=== PATIENT | female | born 1935 | race Caucasian/White ===

== ENCOUNTER 2018-07-01 14:17 | Inpatient (IN) ==
[2018-07-01] MEDS ORDERED: Ondansetron ODT 4 MG TAB.RAPDIS PO PRN (16:08)
[2018-07-01] MEDS ORDERED: Furosemide 20 MG TABLET PO PRN (16:08)
[2018-07-01] MEDS ORDERED: Levalbuterol Neb 0.63 MG/3 ML IH PRN (16:08)
[2018-07-01] MEDS ORDERED: *HR* Warfarin 1 MG TABLET PO SCH (18:00)
[2018-07-01] MEDS: Azithromycin 250 MG TABLET PO SCH (18:23)
[2018-07-01] MEDS: Melatonin 3 MG TABLET PO SCH (20:55)
[2018-07-01] MEDS: Pregabalin 50 MG CAPSULE PO SCH (20:55)
[2018-07-01] MEDS: traZODone 50 MG TABLET PO SCH (20:55)
[2018-07-01] MEDS ORDERED: Nitrofurantoin (BID) 100 MG CAPSULE PO SCH (21:00)
[2018-07-01] MEDS: Lactobacillus 1 EACH CAP.SPRINK PO SCH (21:11)
[2018-07-01] MEDS: Ipratropium/Albuterol Neb 3 ML IH SCH (22:52)
[2018-07-02] MEDS: Ipratropium/Albuterol Neb 3 ML IH SCH ×4 (05:10→22:53)
[2018-07-02] MEDS ORDERED: Cefdinir 300 MG CAPSULE PO SCH (09:00)
[2018-07-02 09:15] LABS: Basophils # 0.1 K/mcL (0.0-0.2); Basophils % 0.6 %; Eosinophils # 0.3 K/mcL (0.0-0.6); Eosinophils % 2.5 %; Hematocrit 39.9 % (35.3-44.9); Hemoglobin 12.9 g/dL (11.5-15.4); Lymphocytes # 2.2 K/mcL (0.6-4.6); Lymphocytes % 21.5 %; Mean Corpuscular HGB Conc 32.3 g/dL (31.6-35.5); Mean Corpuscular Hemoglobin 31.5 pg (28.0-33.3); Mean Corpuscular Volume 97.6 fL (83.0-100.0); Mean Platelet Volume 10.2 fL (9.4-12.4); Monocytes # 0.9 K/mcL (0.0-1.3); Monocytes % 8.8 %; Neutrophils # 6.7 K/mcL (1.6-8.9); Platelet Count 270 K/mcL (140-400); Red Blood Count 4.09 M/mcL (3.82-4.97); Red Cell Distribution Width 12.5 % (11.5-14.5); Segmented Neutrophils % 64.6 %
[2018-07-02 09:54] LABS: INR 1.5; Prothrombin Time 17.2 Seconds (9.4-12.1)
[2018-07-02 09:56] LABS: Activated Partial Thrombo Time 36.9 Seconds (26.0-36.0)
[2018-07-02] MEDS: Lactobacillus 1 EACH CAP.SPRINK PO SCH ×2 (10:02→20:49)
[2018-07-02] MEDS: Loratadine 10 MG TABLET PO SCH (10:02)
[2018-07-02] MEDS: Pregabalin 50 MG CAPSULE PO SCH ×2 (10:03→20:49)
[2018-07-02] MEDS: Cholecalciferol (D-3) 1,000 UNIT TABLET PO SCH (10:03)
[2018-07-02] MEDS: *HR* Digoxin 0.125 MG TABLET PO SCH (10:05)
[2018-07-02 10:12] LABS: Calcium 9.1 mg/dL (8.6-10.3); Potassium 4.3 mEq/L (3.5-5.1)
[2018-07-02] MEDS: UMECLIDINIUM IH SCH (10:48)
[2018-07-02] MEDS: BREO ELLIPTA IH SCH (10:48)
[2018-07-02] MEDS: Azithromycin 250 MG TABLET PO SCH (15:27)
[2018-07-02] MEDS ORDERED: Furosemide 20 MG TABLET PO SCH (15:45)
[2018-07-02] MEDS ORDERED: *HR* Warfarin 2 MG TABLET PO SCH (18:00)
--- NOTE | 2018-07-02 19:53 | Internal Med History&Physical ---
Date of Encounter: 07/02/18 Time of Encounter: 19:20 Assessment and Plan (1) HCAP (healthcare-associated pneumonia) Current visit: No Status: Acute She will be started on doxycycline with lactobacillus for mycoplasma pneumonia. (2) Hypothyroidism Current visit: Yes Status: Chronic TSH will be checked in a.m. Qualifiers: Hypothyroidism type: unspecified Qualified Code(s): E03.9 - Hypothyroidism, unspecified (3) CKD (chronic kidney disease) stage 3, GFR 30-59 ml/min Current visit: Yes Status: Chronic Monitor renal indices. (4) Type 2 diabetes mellitus Current visit: No Status: Chronic Check hemoglobin A1c in a.m. Qualifiers: Diabetes mellitus long-term insulin use: without keno terminal operator use Diabetes mellitus complication status: without complication Qualified Code(s): E11.9 - Type 2 diabetes mellitus without complications (5) Atrial fibrillation Current visit: No Status: Chronic Continue Coumadin and monitor pro times. Qualifiers: Atrial fibrillation type: chronic Qualified Code(s): I48.2 - Chronic atrial fibrillation (6) COPD with exacerbation Current visit: No Status: Acute Antibiotics as per above. Continue nebulizer treatments as needed. Internal Medicine - H&P: HPI Chief complaint: Pneumonia Admitted From: Hospital to Hospital Transfer Plans for Post Hospital Care: Home History of present illness: Ms. Canada is a 82 year old female was hospitalized at [facility] June 28 with pneumonia. She reportedly had failed outpatient therapy. She was found to have rhinovirus and mycoplasma pneumonia on serology. She was stabilized and transferred to [facility] swing bed for ongoing care needs. Respiratory history is significant for having smoked from age [age]. She claims a diagnosis of COPD from pulmonary function test many years ago. She has oxygen at home which she uses at bedtime and when necessary during the daytime. Past Med Surg Social Fam HX - Past Medical History Medical history: arthritis, atrial fibrillation, CHF, COPD, dementia, diabetes, renal disease Additional medical history: mitral valve prolapse Psychiatric history: depression - Past Surgical History Surgical History: breast surgery, cholecystectomy, hysterectomy, knee replacement Additional surgical history: bladder repair - Social History Smoking Status: Former smoker Smokeless Tobacco Status: No Alcohol use: none Drug use: none - Family History Son Hx Family Cardiac Disorders: Yes Hx Family Endocrine Disorder: Yes Mother Adopted: No Age: 61 Family Member Ethnicity: Non- Living Status: Age at : 61 Cause of : [place] , CHF, Hx Family Cardiac Disorders: Yes Hx Family Respiratory Disorders: No Hx Family Cancer: No Hx Family GI Disorders: No Hx Family Genitourinary Disorders: No Hx Family Endocrine Disorder: No Hx Family Musculoskeletal Disorders: No Hx Family Neuromuscular Disorders: No Hx Family Neurologic Disorders: No Hx Family HEENT Disorders: No Hx Family Autoimmune Disorders: No Hx Family Reproductive Disorders: No Hx Family Psychosocial Disorders: No Hx Family Medical Disorders: No Father Adopted: No Age: 62 Family Member Ethnicity: Non- Living Status: Age at : 62 Cause of : kidney disease Hx Family Cardiac Disorders: No Hx Family Respiratory Disorders: No Hx Family Cancer: No Hx Family GI Disorders: No Hx Family Genitourinary Disorders: No Hx Family Endocrine Disorder: Yes (kidney disease) Hx Family Musculoskeletal Disorders: No Hx Family Neuromuscular Disorders: No Hx Family Neurologic Disorders: No Hx Family HEENT Disorders: No Hx Family Autoimmune Disorders: No Hx Family Reproductive Disorders: No Hx Family Psychosocial Disorders: No Hx Family Medical Disorders: No Internal Medicine - H&P: Meds Acetaminophen [Tylenol] 500 mg PO Q6HR PRN 06/28/18 [History] Atenolol [Tenormin] 50 mg PO DAILY 06/28/18 [History] Cholecalciferol (Vitamin D3) [Vitamin D3] 2,000 unit PO DAILY 06/28/18 [History] Digoxin [Lanoxin] 0.125 mg PO DAILY 06/28/18 [History] Docusate [Colace] 100 mg PO DAILY PRN 06/28/18 [History] Duloxetine HCl [Cymbalta] 60 mg PO DAILY 06/28/18 [History] Fluticasone/Vilanterol [Breo Ellipta 200-25 Mcg INH] 1 puff IH DAILY 06/28/18 [History] Furosemide [Lasix] 20 mg PO DAILY PRN 06/28/18 [History] HydrOXYzine 10 mg PO TID PRN 06/28/18 [History] Levalbuterol Neb [Xopenex Neb] 0.63 mg IH QID PRN 06/28/18 [History] Levothyroxine [Synthroid] 100 mcg PO 0630 06/28/18 [History] Loratadine [Allergy Relief] 10 mg PO DAILY 06/28/18 [History] Meclizine HCl [Verticalm] 25 mg PO TID PRN 06/28/18 [History] Melatonin 10 mg PO HS 06/28/18 [History] Montelukast [Singulair] 10 mg PO DAILY 06/28/18 [History] Nitrofurantoin Macrocrystal [Nitrofurantoin] 100 mg PO BID 06/28/18 [History] Ondansetron HCl [Zofran] 4 mg PO TID PRN 06/28/18 [History] Pregabalin [Lyrica] 100 mg PO BID 06/28/18 [History] Rosuvastatin Calcium [Crestor] 5 mg PO DAILY 06/28/18 [History] Umeclidinium [place] [Incruse Ellipta] 62.5 mcg IH DAILY 06/28/18 [History] Warfarin Sodium 1 mg PO SUTUTHSA 06/28/18 [History] Warfarin [Coumadin] 2 mg PO MOWEFR 06/28/18 [History] traZODone [TraZODone] 50 mg PO HS 06/28/18 [History] Azithromycin [Zithromax] 500 mg PO Q24H tablet 07/01/18 [Rx] Cefdinir [Omnicef] 300 mg PO DAILY capsule 07/01/18 [Rx] Allergy/AdvReac Type Severity Reaction Status Date / Time adhesive tape Allergy Rash Verified 06/27/18 23:58 codeine Allergy Rash Verified 06/27/18 23:58 dexbrompheniramine Allergy Rash Verified 06/27/18 23:58 [From Adexol] Penicillins Allergy Rash Verified 06/27/18 23:58 pseudoephedrine [From Adexol] Allergy Rash Verified 06/27/18 23:58 Sulfa (Sulfonamide Allergy Rash Verified 06/27/18 23:58 Antibiotics) All Systems PM: A 10-system review of systems was performed and is negative for pertinent findings except as documented above in the HPI. Review of systems: Gen.: She states her weight has been stable for several months Cardiovascular: She has history of chronic atrial fibrillation and claims diagnosis of heart failure. Echocardiogram done at [place] was reported unremarkable on [facility] notes. She has occasional chest pain on exertion. She denies hypertension [place] DVT or pulmonary embolus Respiratory: As per history of present illness GI: She has had cholecystectomy. She reports a diagnosis of cirrhosis of uncertain etiology. She denies disorders of her liver otherwise or exocrine pancreas. : She has chronic kidney disease stage III and follows with a refinery operator reforming unit. She denies other kidney or bladder disorders. Neurologic: She denies large distribution strokes or seizures. Endocrine: She was diagnosed with DM 2 several years ago. She has hypothyroidism and hyperlipidemia Hematology/oncology: She had left breast cancer with partial mastectomy 1968 which was curative. She denies recurrence or other malignancies. She denies anemia. Psychiatric: She has depression but denies anxiety other mental health issues [place] skeletal: She has DJD. She had right total knee replacement approximately 2006. She denies gout or other bone joint or muscle disorders. - Constitutional Vitals: Temp Pulse Resp BP Pulse Ox 97.4 F L 82 18 107/68 98 07/02/18 18:38 07/02/18 18:38 07/02/18 18:38 07/02/18 18:38 07/02/18 18:38 Exam: Gen.: She is a well-developed well-nourished female lying in bed who appears in no acute distress at present time HEENT: Head is atraumatic and normocephalic. Eyes: EOMI. There is no scleral icterus. Mouth: Mucosa is moist. Neck: Supple and nontender. There is no thyromegaly or adenopathy noted. Heart: Irregularly irregular without murmurs or gallops Lungs: She has inspiratory crackles in the right base that do not clear with coughing. No wheezing is heard. Abdomen: Soft and nontender. No masses or guarding are noted. Extremities: There is no cyanosis edema or clubbing noted. Dorsalis pedis and posterior tibial pulses are trace palpable bilaterally. Her feet are warm to touch. Neurologic: Mental status: She is talkative and a good historian. Cranial nerves: Smile is symmetric. Forehead wrinkles bilaterally. Tongue protrudes midline. EOMI. Motor: There is no pronator drift. Cerebellar: Finger to nose is intact bilaterally. Skin: Warm and dry Internal Med - H&P Results - Labs CBC & Chem 7: 07/02/18 09:04 07/02/18 09:04 Labs: Short CBC 07/02/18 Range/Units 09:04 WBC 10.4 (4.3-11.1) K/mcL Hgb 12.9 (11.5-15.4) g/dL Hct 39.9 (35.3-44.9) % Plt Count 270 (140-400) K/mcL Neutrophils # 6.7 (1.6-8.9) K/mcL BMP 07/02/18 09:04 Sodium 138 Potassium 4.3 Chloride 96 L Carbon Dioxide 37 H BUN 24 H Creatinine 1.08 Glucose 139 H Calcium 9.1
[2018-07-02] MEDS: traZODone 50 MG TABLET PO SCH (20:49)
[2018-07-02] MEDS: Doxycycline 100 MG CAPSULE PO SCH (20:49)
[2018-07-02] MEDS: Melatonin 3 MG TABLET PO SCH (20:49)
[2018-07-03] MEDS: Ipratropium/Albuterol Neb 3 ML IH SCH ×3 (04:56→16:00)
[2018-07-03 05:53] LABS: Basophils % 0.2 %; Eosinophils # 0.2 K/mcL (0.0-0.6); Eosinophils % 2.2 %; Hematocrit 33.9 % (35.3-44.9); Hemoglobin 11.1 g/dL (11.5-15.4); Immature Granulocytes % 1.7 % (0-4); Lymphocytes # 1.9 K/mcL (0.6-4.6); Lymphocytes % 18.2 %; Mean Corpuscular HGB Conc 32.7 g/dL (31.6-35.5); Mean Corpuscular Hemoglobin 32.1 pg (28.0-33.3); Mean Platelet Volume 10.3 fL (9.4-12.4); Monocytes # 0.9 K/mcL (0.0-1.3); Monocytes % 8.6 %; Platelet Count 193 K/mcL (140-400); Red Blood Count 3.46 M/mcL (3.82-4.97); Red Cell Distribution Width 12.8 % (11.5-14.5); Segmented Neutrophils % 69.1 %
[2018-07-03 06:24] LABS: Thyroid Stimulating Hormone 3.442 mcIU/mL (0.340-5.600)
[2018-07-03 07:09] LABS: Calcium 8.3 mg/dL (8.6-10.3); Digoxin 0.6 ng/mL (0.8-2.0); Magnesium 1.8 mg/dL (1.6-2.6); Potassium 4.2 mEq/L (3.5-5.1)
[2018-07-03] MEDS: *HR* Digoxin 0.125 MG TABLET PO SCH (09:19)
[2018-07-03 09:20] LABS: Folate 9.9 ng/mL (3.0-16.0)
[2018-07-03] MEDS: Doxycycline 100 MG CAPSULE PO SCH ×2 (09:20→21:03)
[2018-07-03] MEDS: Lactobacillus 1 EACH CAP.SPRINK PO SCH ×2 (09:20→21:03)
[2018-07-03] MEDS: Loratadine 10 MG TABLET PO SCH (09:20)
[2018-07-03] MEDS: Cholecalciferol (D-3) 1,000 UNIT TABLET PO SCH (09:20)
[2018-07-03] MEDS: Pregabalin 50 MG CAPSULE PO SCH ×2 (09:20→21:04)
[2018-07-03] MEDS: BREO ELLIPTA IH SCH (09:24)
[2018-07-03] MEDS: UMECLIDINIUM IH SCH (09:24)
[2018-07-03 10:23] LABS: Estimated Average Glucose 163 mg/dl; Hemoglobin A1C 7.3 %
[2018-07-03] MEDS: *HR* Warfarin 2 MG TABLET PO SCH (17:45)
--- NOTE | 2018-07-03 19:09 | Internal Med Progress Note ---
Date of Encounter: 07/03/18 Time of Encounter: 19:00 - Assessment and plan (1) HCAP (healthcare-associated pneumonia) Current Visit: No Status: Acute Assessment and plan: July 03. Continue doxycycline and lactobacillus through July 07. (2) Hypothyroidism Current Visit: Yes Status: Chronic Assessment and plan: July 03. TSH was normal. Continue present dose Synthroid. Qualifiers: Hypothyroidism type: unspecified Qualified Code(s): E03.9 - Hypothyroidism, unspecified (3) CKD (chronic kidney disease) stage 3, GFR 30-59 ml/min Current Visit: Yes Status: Chronic Assessment and plan: July 03. Discontinue Lasix and monitor BMP peptide and azotemia. (4) Type 2 diabetes mellitus Current Visit: No Status: Chronic Assessment and plan: July 03. Hemoglobin A1c 7.3%. Continue Accu-Cheks with SSI Qualifiers: Diabetes mellitus termite treater helper insulin use: without senior living use Diabetes mellitus complication status: without complication Qualified Code(s): E11.9 - Type 2 diabetes mellitus without complications (5) Atrial fibrillation Current Visit: No Status: Chronic Assessment and plan: July 03. INR subtherapeutic at 1.5. Increase Coumadin to 2 mg daily. Qualifiers: Atrial fibrillation type: chronic Qualified Code(s): I48.2 - Chronic atrial fibrillation (6) COPD with exacerbation Current Visit: No Status: Acute Assessment and plan: July 03. Continue present regimen. Anticipate discharge home 07/07/2018. - Subjective Interval history: July 03. She has no new complaints and feels better. - Constitutional Vitals: Temp Pulse Resp BP Pulse Ox 98.5 F 94 18 128/68 100 07/03/18 18:49 07/03/18 18:49 07/03/18 18:49 07/03/18 18:49 07/03/18 18:49 Exam: She is resting comfortably in bed and appears in no acute distress. Her affect is bright and cheerful. I reviewed her medications and lab results. Internal Medicine: Result - Labs CBC & Chem 7: 07/03/18 05:33 07/03/18 05:33 Labs: Short CBC 07/03/18 Range/Units 05:33 WBC 10.2 (4.3-11.1) K/mcL Hgb 11.1 L D (11.5-15.4) g/dL Hct 33.9 L (35.3-44.9) % Plt Count 193 (140-400) K/mcL Neutrophils # 7.0 (1.6-8.9) K/mcL BMP 07/03/18 05:33 Sodium 140 Potassium 4.2 Chloride 99 Carbon Dioxide 35 H BUN 28 H Creatinine 1.12 Glucose 137 H Calcium 8.3 L - ABG Interpretation ABG results: PT/INR, D-dimer PT 17.2 Seconds (9.4-12.1) H 07/02/18 09:04 Consult Discharge Plan - Plan Referrals: Sulema Toney, PURCHASING EXPEDITOR [Primary Care Provider] - 1 week
[2018-07-03] MEDS: Melatonin 3 MG TABLET PO SCH (21:04)
[2018-07-03] MEDS: traZODone 50 MG TABLET PO SCH (21:04)
[2018-07-04] MEDS: Lactobacillus 1 EACH CAP.SPRINK PO SCH ×2 (08:28→21:43)
[2018-07-04] MEDS: Doxycycline 100 MG CAPSULE PO SCH ×2 (08:29→21:43)
[2018-07-04] MEDS: Cholecalciferol (D-3) 1,000 UNIT TABLET PO SCH (08:29)
[2018-07-04] MEDS: *HR* Digoxin 0.125 MG TABLET PO SCH (08:29)
[2018-07-04] MEDS: Loratadine 10 MG TABLET PO SCH (08:29)
[2018-07-04] MEDS: Pregabalin 50 MG CAPSULE PO SCH ×2 (08:29→21:43)
[2018-07-04] MEDS: BREO ELLIPTA IH SCH (08:30)
[2018-07-04] MEDS: UMECLIDINIUM IH SCH (08:30)
[2018-07-04] MEDS: *HR* Warfarin 2 MG TABLET PO SCH (17:47)
[2018-07-04] MEDS: Melatonin 3 MG TABLET PO SCH (21:43)
[2018-07-04] MEDS: traZODone 50 MG TABLET PO SCH (21:43)
[2018-07-05 09:06] LABS: INR 2.2; Prothrombin Time 25.2 Seconds (9.4-12.1)
[2018-07-05] MEDS: Lactobacillus 1 EACH CAP.SPRINK PO SCH ×2 (09:20→21:55)
[2018-07-05] MEDS: *HR* Digoxin 0.125 MG TABLET PO SCH (09:20)
[2018-07-05] MEDS: Pregabalin 50 MG CAPSULE PO SCH ×2 (09:20→21:55)
[2018-07-05] MEDS: Cholecalciferol (D-3) 1,000 UNIT TABLET PO SCH (09:20)
[2018-07-05] MEDS: Loratadine 10 MG TABLET PO SCH (09:20)
[2018-07-05] MEDS: Doxycycline 100 MG CAPSULE PO SCH ×2 (09:21→21:55)
[2018-07-05] MEDS: BREO ELLIPTA IH SCH (09:26)
[2018-07-05] MEDS: UMECLIDINIUM IH SCH (09:26)
[2018-07-05] MEDS: *HR* Warfarin 2 MG TABLET PO SCH (17:04)
[2018-07-05] MEDS: Melatonin 3 MG TABLET PO SCH (21:56)
[2018-07-05] MEDS: traZODone 50 MG TABLET PO SCH (21:56)
[2018-07-06] MEDS: *HR* Digoxin 0.125 MG TABLET PO SCH (08:43)
[2018-07-06] MEDS: Pregabalin 50 MG CAPSULE PO SCH ×2 (08:43→21:48)
[2018-07-06] MEDS: Loratadine 10 MG TABLET PO SCH (08:43)
[2018-07-06] MEDS: Doxycycline 100 MG CAPSULE PO SCH ×2 (08:43→21:48)
[2018-07-06] MEDS: Lactobacillus 1 EACH CAP.SPRINK PO SCH ×2 (08:43→21:49)
[2018-07-06] MEDS: Cholecalciferol (D-3) 1,000 UNIT TABLET PO SCH (08:44)
[2018-07-06] MEDS: BREO ELLIPTA IH SCH (09:25)
[2018-07-06] MEDS: UMECLIDINIUM IH SCH (09:25)
--- NOTE | 2018-07-06 14:15 | Internal Med Progress Note ---
Date of Encounter: 07/06/18 Time of Encounter: 14:05 - Assessment and plan (1) HCAP (healthcare-associated pneumonia) Current Visit: No Status: Acute Assessment and plan: July 03. Continue doxycycline and lactobacillus through July 07. (2) Hypothyroidism Current Visit: Yes Status: Chronic Assessment and plan: July 03. TSH was normal. Continue present dose Synthroid. Qualifiers: Hypothyroidism type: unspecified Qualified Code(s): E03.9 - Hypothyroidism, unspecified (3) CKD (chronic kidney disease) stage 3, GFR 30-59 ml/min Current Visit: Yes Status: Chronic Assessment and plan: July 03. Discontinue Lasix and monitor BN peptide and azotemia. July 06. Recheck labs in a.m. (4) Type 2 diabetes mellitus Current Visit: No Status: Chronic Assessment and plan: July 03. Hemoglobin A1c 7.3%. Continue Accu-Cheks with SSI Qualifiers: Diabetes mellitus terminal computer operator insulin use: without half-way use Diabetes mellitus complication status: without complication Qualified Code(s): E11.9 - Type 2 diabetes mellitus without complications (5) Atrial fibrillation Current Visit: No Status: Chronic Assessment and plan: July 03. INR subtherapeutic at 1.5. Increase Coumadin to 2 mg daily. July 06. INR improved to 2.2 on 07/05/2018.. Continue present dose Coumadin and recheck labs in a.m. Qualifiers: Atrial fibrillation type: chronic Qualified Code(s): I48.2 - Chronic atrial fibrillation (6) COPD with exacerbation Current Visit: No Status: Acute Assessment and plan: July 03. Continue present regimen. Anticipate discharge home 07/07/2018. - Subjective Interval history: July 03. She has no new complaints and feels better. July 06. She has no new complaints and feels well. She is anticipating discharge home tomorrow. - Constitutional Vitals: Temp Pulse Resp BP Pulse Ox 97.9 F 81 14 135/76 98 07/06/18 06:55 07/06/18 06:55 07/06/18 06:55 07/06/18 06:55 07/06/18 06:55 Exam: She is resting comfortably in a chair at bedside. Her affect is bright and cheerful. I reviewed her medications and lab results. Internal Medicine: Result - Labs CBC & Chem 7: 07/03/18 05:33 07/03/18 05:33 - ABG Interpretation ABG results: PT/INR, D-dimer PT 25.2 Seconds (9.4-12.1) H 07/05/18 07:55 Consult Discharge Plan - Plan Referrals: Sulema Toney, DONATION WORKER [Primary Care Provider] - 1 week
[2018-07-06] MEDS: *HR* Warfarin 2 MG TABLET PO SCH (17:40)
[2018-07-06] MEDS: traZODone 50 MG TABLET PO SCH (21:48)
[2018-07-06] MEDS: Melatonin 3 MG TABLET PO SCH (21:48)
[2018-07-07 05:51] LABS: Basophils % 0.7 %; Eosinophils # 0.2 K/mcL (0.0-0.6); Eosinophils % 4.1 %; Hematocrit 30.5 % (35.3-44.9); Hemoglobin 9.8 g/dL (11.5-15.4); Immature Granulocytes % 1.2 % (0-4); Lymphocytes # 1.4 K/mcL (0.6-4.6); Lymphocytes % 23.8 %; Mean Corpuscular HGB Conc 32.1 g/dL (31.6-35.5); Mean Corpuscular Hemoglobin 31.5 pg (28.0-33.3); Mean Corpuscular Volume 98.1 fL (83.0-100.0); Mean Platelet Volume 10.5 fL (9.4-12.4); Monocytes # 0.9 K/mcL (0.0-1.3); Monocytes % 14.5 %; Neutrophils # 3.3 K/mcL (1.6-8.9); Platelet Count 172 K/mcL (140-400); Red Blood Count 3.11 M/mcL (3.82-4.97); Segmented Neutrophils % 55.7 %
[2018-07-07 06:21] LABS: INR 3.2; Prothrombin Time 36.5 Seconds (9.4-12.1)
[2018-07-07 06:34] LABS: BUN/Creatinine Ratio 26 (6-26); Blood Urea Nitrogen 25 mg/dL (8-23); Calcium 8.5 mg/dL (8.6-10.3); Carbon Dioxide 29 mEq/L (23-29); Chloride 105 mEq/L (98-107); Glucose 108 mg/dL (70-105); Osmolality,Calculated 295 (280-300); Potassium 4.1 mEq/L (3.5-5.1); Sodium 140 mEq/L (136-145); eGFR For Non-African Americans 55 (> 60)
[2018-07-07 08:34] VITALS: BP 124/64
[2018-07-07] MEDS: Doxycycline 100 MG CAPSULE PO SCH (08:35)
[2018-07-07] MEDS: Cholecalciferol (D-3) 1,000 UNIT TABLET PO SCH (08:36)
[2018-07-07] MEDS: Loratadine 10 MG TABLET PO SCH (08:36)
[2018-07-07] MEDS: Lactobacillus 1 EACH CAP.SPRINK PO SCH (08:36)
[2018-07-07] MEDS: Pregabalin 50 MG CAPSULE PO SCH (08:37)
[2018-07-07] MEDS: *HR* Digoxin 0.125 MG TABLET PO SCH (08:37)
--- NOTE | 2018-07-07 08:43 | Discharge Summary ---
Date of Encounter: 07/07/18 Time of Encounter: 08:35 - Discharge Diagnosis (1) HCAP (healthcare-associated pneumonia) Priority: Primary Status: Acute (2) Hypothyroidism Priority: Secondary Status: Chronic Qualifiers: Hypothyroidism type: unspecified Qualified Code(s): E03.9 - Hypothyroidism, unspecified (3) CKD (chronic kidney disease) stage 3, GFR 30-59 ml/min Priority: Secondary Status: Chronic (4) Type 2 diabetes mellitus Priority: Secondary Status: Chronic Qualifiers: Diabetes mellitus manager long term care insulin use: without usp use Diabetes mellitus complication status: without complication Qualified Code(s): E11.9 - Type 2 diabetes mellitus without complications (5) Atrial fibrillation Priority: Secondary Status: Chronic Qualifiers: Atrial fibrillation type: chronic Qualified Code(s): I48.2 - Chronic atrial fibrillation (6) COPD with exacerbation Priority: Secondary Status: Acute Hospital course: Ms. Canada is a 82 year old female who was hospitalized at [facility] June 28 with pneumonia. She reportedly had failed outpatient therapy. She was found to have rhinovirus and mycoplasma pneumonia on serology. She was stabilized and transferred to [facility] bed for ongoing care needs. Initial orders were written by the discharging physicians at [facility]. I saw her on July 02 and performed a history and physical. She was given doxycycline for mycoplasma pneumonia. She remained afebrile during her stay and will not require further antibiotics at discharge. Lasix was held and BUN and creatinine improved to 25 and 0.97 respectively by day of discharge with estimated GFR 55. She will continue Lasix on MWF schedule at home. Her PCP can monitor labs. Anemia testing showed iron 23, transferrin saturation 8%, transferrin 205, ferritin 136, B12 3 and 17, and folate 9.9. She was started on ferrous sulfate with vitamin C at discharge. On July 07 arrangements were complete for her to be discharged home. She will follow with her PCP within 1 week. Home health services will be ordered. - Time Spent with Patient Total time spent providing and/or coordinating discharge services: - Discharge Medications Prescriptions: Ascorbic Acid [C-500] 500 mg PO DAILY #30 tablet Ferrous Sulfate 325 mg PO DAILY #30 tablet Home Medications: Acetaminophen [Tylenol] 500 mg PO Q6HR PRN 06/28/18 [History] Atenolol [Tenormin] 50 mg PO DAILY 06/28/18 [History] Cholecalciferol (Vitamin D3) [Vitamin D3] 2,000 unit PO DAILY 06/28/18 [History] Digoxin [Lanoxin] 0.125 mg PO DAILY 06/28/18 [History] Docusate [Colace] 100 mg PO DAILY PRN 06/28/18 [History] Duloxetine HCl [Cymbalta] 60 mg PO DAILY 06/28/18 [History] Fluticasone/Vilanterol [Breo Ellipta 200-25 Mcg INH] 1 puff IH DAILY 06/28/18 [History] Furosemide [Lasix] 20 mg PO DAILY PRN 06/28/18 [History] HydrOXYzine 10 mg PO TID PRN 06/28/18 [History] Levalbuterol Neb [Xopenex Neb] 0.63 mg IH QID PRN 06/28/18 [History] Levothyroxine [Synthroid] 100 mcg PO 0630 06/28/18 [History] Loratadine [Allergy Relief] 10 mg PO DAILY 06/28/18 [History] Meclizine HCl [Verticalm] 25 mg PO TID PRN 06/28/18 [History] Melatonin 10 mg PO HS 06/28/18 [History] Montelukast [Singulair] 10 mg PO DAILY 06/28/18 [History] Ondansetron HCl [Zofran] 4 mg PO TID PRN 06/28/18 [History] Pregabalin [Lyrica] 100 mg PO BID 06/28/18 [History] Rosuvastatin Calcium [Crestor] 5 mg PO DAILY 06/28/18 [History] Umeclidinium [place] [Incruse Ellipta] 62.5 mcg IH DAILY 06/28/18 [History] Warfarin Sodium 1 mg PO SUTUTHSA 06/28/18 [History] Warfarin [Coumadin] 2 mg PO MOWEFR 06/28/18 [History] traZODone [TraZODone] 50 mg PO HS 06/28/18 [History] Ascorbic Acid [C-500] 500 mg PO DAILY #30 tablet 07/07/18 [Rx] Ferrous Sulfate 325 mg PO DAILY #30 tablet 07/07/18 [Rx] Allergies/Adverse Reactions: Allergy/AdvReac Type Severity Reaction Status Date / Time adhesive tape Allergy Rash Verified 06/27/18 23:58 codeine Allergy Rash Verified 06/27/18 23:58 dexbrompheniramine Allergy Rash Verified 06/27/18 23:58 [From Adexol] Penicillins Allergy Rash Verified 06/27/18 23:58 pseudoephedrine [From Adexol] Allergy Rash Verified 06/27/18 23:58 Sulfa (Sulfonamide Allergy Rash Verified 06/27/18 23:58 Antibiotics) Date of admission: 07/01/18 15:27 Primary care physician: Sulema Toney CNP Consults: 07/01/18 16:01 Consult to Occupational Therapy [CONS] Routine Comment: eval, develop and implement Reason for Consult: eval, develop and implement Does patient have active BEDREST order?: No Is patient medically & hemodynamically stable?: Yes Consult to Physical Therapy [CONS] Routine Comment: eval, develop and implement Reason for Consult: eval, develop and implement Does patient have active BEDREST order?: No Is patient medically & hemodynamically stable?: Yes Consult to It Application Administrator [CONS] Routine Reason for SW Consult: may need home health upon discharge - Constitutional Vitals: Temp Pulse Resp BP Pulse Ox 98.0 F 86 16 124/64 96 07/07/18 08:29 07/07/18 08:34 07/07/18 08:29 07/07/18 08:34 07/07/18 08:29 - Patient Status Disposition: Home Health Service - Discharge Instructions Follow Up With: Sulema Toney CNP [Primary Care Provider] - 1 week - Diet and Activity Activity: resume usual activities as tolerated Diet: advance to your usual diet
--- NOTE | 2018-07-07 08:51 | Physician Discharge Referral ---
Home Health/Hosp Referral Info Transfer to: Home Health Attending Provider: Leonardo Provider in Charge Post Discharge: PCP (Sulema Toney CNP) - Diagnosis (1) HCAP (healthcare-associated pneumonia) Priority: Primary Status: Resolved (2) Hypothyroidism Priority: Secondary Status: Chronic (3) CKD (chronic kidney disease) stage 3, GFR 30-59 ml/min Priority: Secondary Status: Chronic (4) Type 2 diabetes mellitus Priority: Secondary Status: Chronic (5) Atrial fibrillation Priority: Secondary Status: Chronic (6) COPD with exacerbation Priority: Secondary Status: Resolved - Respiratory Orders Oxygen / L per min (Oxygen at 2 L/m by nasal cannula at bedtime and when necessary during day time) Smoking Cessation: Smoking cessation has been advised. For more information, call the [facility] Tobacco Quit Line at 6-053-KASK-NOW. - Diet/Nutrition Diet/Nutrition Orders: Cardiac - Activity Activity Orders: Walker - Services Needed Following services are medically necessary services: Nursing, Home Health Aide, Physical Therapy, Occupational Therapy - Transfer Medications Prescriptions: Ascorbic Acid [C-500] 500 mg PO DAILY #30 tablet Ferrous Sulfate 325 mg PO DAILY #30 tablet Home Medications: Acetaminophen [Tylenol] 500 mg PO Q6HR PRN 06/28/18 [History] Atenolol [Tenormin] 50 mg PO DAILY 06/28/18 [History] Cholecalciferol (Vitamin D3) [Vitamin D3] 2,000 unit PO DAILY 06/28/18 [History] Digoxin [Lanoxin] 0.125 mg PO DAILY 06/28/18 [History] Docusate [Colace] 100 mg PO DAILY PRN 06/28/18 [History] Duloxetine HCl [Cymbalta] 60 mg PO DAILY 06/28/18 [History] Fluticasone/Vilanterol [Breo Ellipta 200-25 Mcg INH] 1 puff IH DAILY 06/28/18 [History] Furosemide [Lasix] 20 mg PO DAILY PRN 06/28/18 [History] HydrOXYzine 10 mg PO TID PRN 06/28/18 [History] Levalbuterol Neb [Xopenex Neb] 0.63 mg IH QID PRN 06/28/18 [History] Levothyroxine [Synthroid] 100 mcg PO 0630 06/28/18 [History] Loratadine [Allergy Relief] 10 mg PO DAILY 06/28/18 [History] Meclizine HCl [Verticalm] 25 mg PO TID PRN 06/28/18 [History] Melatonin 10 mg PO HS 06/28/18 [History] Montelukast [Singulair] 10 mg PO DAILY 06/28/18 [History] Ondansetron HCl [Zofran] 4 mg PO TID PRN 06/28/18 [History] Pregabalin [Lyrica] 100 mg PO BID 06/28/18 [History] Rosuvastatin Calcium [Crestor] 5 mg PO DAILY 06/28/18 [History] Umeclidinium [place] [Incruse Ellipta] 62.5 mcg IH DAILY 06/28/18 [History] Warfarin Sodium 1 mg PO SUTUTHSA 06/28/18 [History] Warfarin [Coumadin] 2 mg PO MOWEFR 06/28/18 [History] traZODone [TraZODone] 50 mg PO HS 06/28/18 [History] Ascorbic Acid [C-500] 500 mg PO DAILY #30 tablet 07/07/18 [Rx] Ferrous Sulfate 325 mg PO DAILY #30 tablet 07/07/18 [Rx] Allergies/Adverse Reactions: Allergy/AdvReac Type Severity Reaction Status Date / Time adhesive tape Allergy Rash Verified 06/27/18 23:58 codeine Allergy Rash Verified 06/27/18 23:58 dexbrompheniramine Allergy Rash Verified 06/27/18 23:58 [From Adexol] Penicillins Allergy Rash Verified 06/27/18 23:58 pseudoephedrine [From Adexol] Allergy Rash Verified 06/27/18 23:58 Sulfa (Sulfonamide Allergy Rash Verified 06/27/18 23:58 Antibiotics) Certification: Further, I certify that my clinical findings support that this patient is homebound (i.e. absences from home require considerable and taxing effort and are for medical reasons or nondenominational services or infrequently or short duration when for other reasons) because: Homebound Reason: Leaving home requires considerable and taxing effort due to condition (Impaired walking ability secondary to COPD) Attestation: My signature below is to certify that this patient is under my care and that I, or nurse practitioner, or a physician's information technology assistant working with me, has a [id number] encounter with this patient.
[2018-07-07] MEDS: UMECLIDINIUM IH SCH (09:15)
[2018-07-07] MEDS: BREO ELLIPTA IH SCH (09:15)
== END 2018-07-07 10:38 | disposition home health service (06) | DRG 194 ==
LOC: INPPIK 15:27
PROVIDERS: ADMIT Internal Medicine; ATTEND Internal Medicine